=== PATIENT | female | born 1990 | race Caucasian/White ===

== ENCOUNTER → 2021-03-18 | Outpatient (CLI) | payer OTHER | LOC: KOH-I 09:45 | DX: S83.412A Sprain of medial collateral ligament of left knee, initial encounter (principal); S80.02XA Contusion of left knee, initial encounter | CPT/HCPCS: 73721 ==

== ENCOUNTER → 2021-08-17 | Outpatient (CLI) | payer OTHER | LOC: KOH-I 10:54 | DX: S83.212A Bucket-handle tear of medial meniscus, current injury, left knee, initial encounter (principal); M25.462 Effusion, left knee; S83.412A Sprain of medial collateral ligament of left knee, initial encounter | CPT/HCPCS: 73721 ==